=== PATIENT | male | born 1980 | race Caucasian/White ===

== ENCOUNTER 2016-09-21 10:24 | Emergency (ER) | payer SELFPAY ==
[~2016-09-21] VITALS: Ht 170.2 cm; Wt 74.0 kg
[~2016-09-21 10:24] MED LIST: BACT800T5 PO; CEPH500C3 PO; VIST25CA PO
[2016-09-21 10:41] VITALS: BP 131/90; PULSE 91; RESP 16; TEMP 98; O2SAT 99
[2016-09-21 10:57] LABS: BLOOD, URINE NEG (NEG); GLUCOSE,URINE NEG (NEG); KETONE, URINE NEG (NEG); NITRITE,URINE NEG (NEG)
[2016-09-21] MEDS ORDERED: VALT500T PO (10:59)
[2016-09-21] MEDS ORDERED: LIDOCAINE HCL 1% PF 30 ML VIAL XX ONE (11:00)
[2016-09-21] MEDS ORDERED: AZITHROMYCIN PWD FOR SUSP 1 GM PACKET PO ONE (11:00)
[2016-09-21] MEDS ORDERED: metroNIDAZOLE 500 MG TAB PO ONE (11:00)
[2016-09-21 11:06] LABS: METHOD OF COLLECTION CLEAN CATCH; RBC, URINE 0-3 /hpf (0-3); URINE COLOR YELLOW (YELLW/STRAW)
--- NOTE | 2016-09-21 11:06 | PD ---
HPI Chief Complaint: Complaint Time Seen by Provider: 11:02 Travel History International Travel<30 days: No Contact w/Intl Traveler<30days: No Traveled to known affect area: No History of Present Illness HPI Patient comes in complaining of dysuria 1 week. Patient denies any discharge, testicular pain, fever, nausea, vomiting, abdominal pain, or radiation of pain. Patient states pain is only upon voiding at the tip of his penis. Denies any rashes. Patient states he had unprotected sex approximately 10 days ago. Patient is uncertain if his partner is having any symptoms. PFSH Past Medical History Hx Anticoagulant Therapy: No Cardiovascular Problems: No Chemotherapy: No Cerebrovascular Accident: No Diabetes: No Diminished Hearing: No Respiratory: No Influenza Vaccination: No Social History Alcohol Use: No Tobacco Use: Yes Substance Use: Yes (cocaine and heroin) Allergies-Medications (Allergen,Severity, Reaction): Coded Allergies: No Known Allergies (Unverified , 09/21/16) Reported Meds & Prescriptions Reported Meds & Active Scripts Active Reported Valtrex (Valacyclovir HCl) 500 Mg Tab 500 Mg PO TID Review of Systems Except as stated in HPI: all other systems reviewed are Neg Physical Exam Narrative GENERAL: Well-developed, well nourished, in no acute distress, and non-ill appearing. SKIN: Warm and dry. HEAD: Atraumatic. Normocephalic. EYES: Pupils equal and round. EOMI. No scleral icterus. No injection or drainage. ENT: No nasal bleeding or discharge. Mucous membranes pink and moist. NECK: Trachea midline. Supple. No nuclear rigidity. RESPIRATORY: No accessory muscle use. No respiratory distress. GASTROINTESTINAL: Abdomen soft, non-tender, nondistended. Hepatic and splenic margins not palpable. No pulsatile mass. MUSCULOSKELETAL: No obvious deformities. No clubbing. No cyanosis. No edema. Full range of motion. NEUROLOGICAL: Awake and alert. No obvious cranial nerve deficits. Motor grossly within normal limits. Normal speech. PSYCHIATRIC: Appropriate mood and affect; insight and judgment normal. Data Data Last Documented VS Vital Signs Date Time Temp Pulse Resp B/P Pulse Ox O2 Delivery O2 Flow Rate FiO2 09/21/16 10:41 98.0 91 16 131/90 99 Orders Urinalysis - C+S If Indicated (09/21/16 10:44) Gc And Chlamydia Pcr (09/21/16 10:59) Azithromycin Powd Pack (Zithromax Powd P (09/21/16 11:00) Metronidazole (Flagyl) (09/21/16 11:00) Ceftriaxone Inj (Rocephin Inj) (09/21/16 11:00) Lidocaine Pf 1% Inj (Xylocaine-Mpf 1% In (09/21/16 11:00) Labs Laboratory Tests Test 09/21/16 10:37 Urine Collection Type CLEAN CATCH Urine Color YELLOW Urine Turbidity SLIGHT Urine pH 8.0 Urine Specific [place] 1.016 Urine Protein NEG mg/dL Urine Glucose (UA) NEG mg/dL Urine Ketones NEG mg/dL Urine Occult Blood NEG Urine Nitrite NEG Urine Bilirubin NEG Urine Leukocyte Esterase NEG Urine RBC 0-3 /hpf Urine Squamous Epithelial 0-5 /hpf Cells Urine Amorphous Sediment LARGE Microscopic Urinalysis Comment CULT NOT INDICATED Urine Collection Time 10:[address] [facility] Medical Decision Making Medical Screen Exam Complete: Yes Emergency Medical Condition: No Differential Diagnosis Gonorrhea, chlamydia, UTI, other Narrative Course Patient in no obvious distress upon re-evaluation. Any questions/concerns in reference to patient diagnosis/condition discussed and clarified prior to patient's discharge. Reinforced sheer importance of close follow up with patient 's primary physician or primary care clinic. Instructed patient to return to ED immediately, if symptoms return/worsen. Pt showed understanding of above instructions. Further instructions and recommendations were detailed in discharge paperwork. Pt ambulated without difficulty out of ED at discharge. Diagnosis Primary Impression: Dysuria Additional Impression: Possible exposure to STD Patient Instructions: Dysuria (ED), General Instructions, Sexually Transmitted Diseases (ED) Additional Instructions: Follow-up with your primary care physician and/or health Department for additional STD testing. Notify all sexual partners have them tested and treated. Do not have intercourse until all sexual partners tested and treated. Practice safe sex to prevent further STDs and/or unwanted pregnancies. If you would like a copy of your gonorrhea and chlamydia results bring a photo ID to medical records in 24-48 hours to get a copy. Return to the emergency department if symptoms get worse. Disposition: 01 DISCHARGE HOME Condition: Harris Quintana Sep 21, 2016 11:06
[2016-09-21 11:07] LABS: COMMENT (UR) CULT NOT INDICATED; CULTURE IF INDICATED CULT NOT INDICATED; SQUAMOUS EPITHELIAL CELL URINE 0-5 /hpf (0-5)
[2016-09-21 16:13] LABS: CHLAMYDIA PCR NOT DETECTED (NOT DETECT); NEISSERIA PCR NOT DETECTED (NOT DETECT)
== END 2016-09-21 11:54 | disposition home or self-care (01) ==
LOC: PHEFT 10:24
DX: R30.0 Dysuria (principal)
CPT/HCPCS: 81001; 87491; 87591; 96372; 99283; J0696